=== PATIENT | female | born 1995 | race Hispanic/Latino ===

== ENCOUNTER 2017-07-26 12:00 | Inpatient (IN) | payer SELFPAY ==
[2017-07-26 12:05] VITALS: BMI 23.5
[2017-07-26] MEDS ORDERED: Sodium Chloride 0.9% 1,000 ML IV ONE (12:19)
--- NOTE | 2017-07-26 12:30 | C.PDOC ---
History Of Present Illness 21-year-old female presents to the emergency department with complaints of left upper quadrant abdominal and flank pain for the past 1 week. She states the pain is constant and minimally improves with Tylenol. Patient notes having intermittent fever and non-bloody/non-bilious vomiting for the past three days, and currently complains of nausea and pain. Patient denies dysuria/hematuria, vaginal bleeding/discharge or diarrhea. LMP was mid-June. Time Seen by Provider: 07/26/17 12:14 Chief Complaint (Nursing): Abdominal Pain History Per: Patient History/Exam Limitations: no limitations Onset/Duration Of Symptoms: Days Current Symptoms Are (Timing): Still Present Severity: Moderate Quality Of Discomfort: "Pain" Associated Symptoms: Nausea. denies: Vomiting, Diarrhea, Urinary Symptoms Past Medical History Reviewed: Historical Data, Nursing Documentation, Vital Signs Vital Signs: Last Vital Signs Temp 98.7 F 07/28/17 16:00 Pulse 65 07/28/17 16:00 Resp 20 07/28/17 16:00 BP 107/62 07/28/17 16:00 Pulse Ox 99 07/28/17 16:00 - Medical History PMH: No Chronic Diseases Surgical History: Tonsillectomy Family History: States: No Known Family Hx - Social History Hx Alcohol Use: No Hx Substance Use: No - Immunization History Hx Tetanus Toxoid Vaccination: No Hx Influenza Vaccination: No Hx Pneumococcal Vaccination: No Review Of Systems Except As Marked, All Systems Reviewed And Found Negative. Constitutional: Positive for: Fever Cardiovascular: Negative for: Chest Pain, Palpitations Respiratory: Negative for: Cough, Shortness of Breath Gastrointestinal: Positive for: Nausea, Vomiting, Abdominal Pain. Negative for : Diarrhea Genitourinary: Negative for: Dysuria, Hematuria, Vaginal Discharge, Vaginal Bleeding Musculoskeletal: Negative for: Back Pain Skin: Negative for: Rash Neurological: Negative for: Weakness, Numbness Physical Exam - Physical Exam Appears: Well, Non-toxic, In Acute Distress (in moderate pain, tearful) Skin: Warm, Dry, No Rash Head: Normacephalic Eye(s): bilateral: Normal Inspection Oral Mucosa: Moist Neck: Normal ROM Cardiovascular: Rhythm Regular, No Murmur Respiratory: Normal Breath Sounds, No Accessory Muscle Use, No Rales, No Rhonchi , No Wheezing Gastrointestinal/Abdominal: Bowel Sounds, Soft, Tenderness (LUQ and left periumbilical area TTP), No Guarding, No Rebound Back: CVA Tenderness (left) Extremity: Normal ROM Neurological/Psych: Oriented x3 ED Course And Treatment - Laboratory Results Result Diagrams: 07/28/17 07:54 07/28/17 07:54 O2 Sat by Pulse Oximetry: 100 (RA) Pulse Ox Interpretation: Normal Progress Note: Bloodwork, UA, UPreg ordered and reviewed. Patient given IV NS bolus, IV morphine, IV zofran. CT scan abd/pelvis ordered to r/o kidney stone. CT scan shows left sided mild hydronephrosis and perinephric stranding - no stone; consistent with acute pyelonephritis. Reevaluation Time: 16:00 Reassessment Condition: Improved (Patient appears improved but still having left sided abd/flank pain - IV toradol ordered.) - Physician Consult Information Physician Contacted: Nuzhat Chavez Outcome Of Conversation: Discussed patient with hospitalist, agrees with admission to her service for acute pyelonephritis. Disposition - Disposition Disposition: HOSPITALIZED Disposition Time: 16:10 Condition: STABLE - Clinical Impression Clinical Impression: Acute pyelonephritis, Leukocytosis, Nausea, Vomiting - Scribe Statement The provider has reviewed the documentation as recorded by the Scribe (Belen Church) All medical record entries made by the Scribe were at my direction and personally dictated by me. I have reviewed the chart and agree that the record accurately reflects my personal performance of the history, physical exam, medical decision making, and the department course for this patient. I have also personally directed, reviewed, and agree with the discharge instructions and disposition. Decision To Admit - Pt Status Changed To: Hospital Disposition Of: Inpatient - Admit Certification Admit to Inpatient:: After my assessment, the patient will require hospitalization for at least two midnights. This is because of the severity of symptoms shown, intensity of services needed, and/or the medical risk in this patient being treated as an outpatient. - InPatient: Physician Admission Certification:: see notes - . Bed Request Type: Regular Admitting Physician: Nuzhat Chavez Patient Diagnosis: Acute pyelonephritis, Nausea, Vomiting, Leukocytosis
[2017-07-26] MEDS ORDERED: Sodium Chloride 0.9% 1,000 ML ONE (12:32)
[2017-07-26 12:46] LABS: BASO # 0.1 K/uL (0.0-0.2); BASO % 0.3 % (0.0-2.0); EOS % 0.1 % (0.0-4.0); LYMPH # 2.9 K/uL (1.0-4.3); LYMPH % 13.7 % (20.0-40.0); MEAN CELL VOLUME 82.9 fL (81.0-99.0); MEAN CORPUSCULAR HEMOGLOBIN 28.3 pg (27.0-31.0); MEAN CORPUSCULAR HGB CONC 34.2 g/dL (33.0-37.0); MEAN PLATELET VOLUME 9.1 fL (7.2-11.7); MONO # 2.5 K/uL (0.0-0.8); MONO % 11.6 % (0.0-10.0); RED CELL DISTRIBUTION WIDTH 11.9 % (11.5-14.5); WHITE BLOOD COUNT 21.2 K/uL (4.8-10.8)
[2017-07-26 12:59] LABS: URINE BILIRUBIN NEGATIVE (NEGATIVE); URINE BLOOD 1+ (NEGATIVE); URINE COLOR Amber (YELLOW); URINE GLUCOSE (UA) 1+ mg/dL (Normal); URINE KETONE TRACE mg/dL (NEGATIVE); URINE LEUKOCYTE ESTERASE 1+ Leu/uL (Negative); URINE PROTEIN 2+ mg/dL (NEGATIVE)
[2017-07-26 13:00] LABS: ALKALINE PHOSPHATASE 79 U/L (38-126); ALT/SGPT 25 U/L (9-52); AST/SGOT 14 U/L (14-36); BILIRUBIN,TOTAL 1.1 mg/dL (0.2-1.3); BLOOD UREA NITROGEN 9 mg/dL (7-17); CALCIUM 7.9 mg/dl (8.6-10.4); CARBON DIOXIDE 20 mmol/L (22-30); CHLORIDE 97 mmol/L (98-107); GFR AFRICAN-AMERICAN > 60; GLUCOSE,RANDOM 91 mg/dL (65-105); POTASSIUM 3.4 mmol/L (3.6-5.2); SODIUM 133 mmol/L (132-148); TOTAL PROTEIN 8.3 g/dL (6.3-8.3)
[2017-07-26 13:01] LABS: ALB/GLOB RATIO 1.2 (1.0-2.1)
[2017-07-26 13:18] LABS: RBC URINE 6 /hpf (0-3)
[2017-07-26 13:19] LABS: URINE BACTERIA MOD (<OCC); WBC URINE 25 /hpf (0-5)
[2017-07-26] MEDS ORDERED: cefTRIAXone IV 1 gm in Dextros 50 ML IV STA (13:51)
[2017-07-26] MEDS ORDERED: cefTRIAXone IV 1 gm in Dextros 50 ML IVPB ONE (14:04)
--- NOTE | 2017-07-26 15:05 | CT ---
PROCEDURE: CT Abdomen and Pelvis without Oral or IV contrast. HISTORY: LUQ PAIN, L FLANK PAIN COMPARISON: None available. TECHNIQUE: Contiguous axial images of the abdomen and pelvis. No oral or IV contrast administered. Coronal and Sagittal reformats generated and reviewed. Radiation dose: Total exam DLP = 387.28 MGy-cm. This CT exam was performed using one or more of the following dose reduction techniques: Automated exposure control, adjustment of the mA and/or kV according to patient size, and/or use of iterative reconstruction technique. FINDINGS: There is limited evaluation of the solid organs without the administration of IV contrast. LOWER THORAX: No visible consolidation, pleural effusion, or pneumothorax. LIVER: Hepatomegaly. GALLBLADDER AND BILE DUCTS: Unremarkable unenhanced appearance. PANCREAS: Unremarkable unenhanced appearance. SPLEEN: Unremarkable unenhanced appearance. ADRENALS: Unremarkable unenhanced appearance. KIDNEYS AND URETERS: Mild left-sided hydronephrosis and fullness of the proximal left ureter without clear evidence of obstructing calculus. Mild perinephric stranding on the left. Correlate for infectious etiologies or recently passed calculus. Alternatives including stricture or neoplasm cannot be entirely excluded. Correlate clinically. Several pelvic calcifications on the left, likely phleboliths. No right-sided hydronephrosis or obstructing calculus identified. BLADDER: Under distention of the urinary bladder limits evaluation. REPRODUCTIVE: Uterus is present. APPENDIX: The appendix appears within normal limits of caliber. No secondary signs of acute appendicitis. BOWEL: The stomach is nondistended. Lack of oral contrast limits evaluation for bowel pathology. The bowel loops appear within normal limits of caliber without evidence of intestinal obstruction. PERITONEUM: Small pelvic free fluid. No definite free air. LYMPH NODES: No bulky lymphadenopathy identified. VASCULATURE: No aortic aneurysm. BONES: No acute osseous abnormality is detected. OTHER FINDINGS: None. IMPRESSION: Mild left-sided hydronephrosis and fullness of the proximal left ureter without clear evidence of obstructing calculus. Mild perinephric stranding on the left. Correlate for infectious etiologies or recently passed calculus. Alternatives including stricture or neoplasm cannot be entirely excluded. Correlate clinically including urinalysis. Several pelvic calcifications on the left, likely phleboliths. Hepatomegaly.
--- NOTE | 2017-07-26 17:03 | CP.PCM.HP ---
Addendum entered and electronically signed by Bebeto Fonseca DO 07/26/17 17: 31: lactate is 1.1. Original Note: <RaymundoBebeto H - Last Filed: 07/26/17 17:22> History of Present Illness - History of Present Illness History of Present Illness: CC: Left flank pain HPI: Patient is a 21 year old female with no significant medical history is here because of left flank pain for one week and then starting a having fever, chills, nausea, vomiting, and malaise that has not improved in 3 days. She says it started with non radiating flank pain which she took Tylenol or Motrin with no relief. She also started vomiting three days ago, vomiting a total of 3 times. She is currently sexually active using only oral control. Her last LMP was last month. She is visiting from [place] but currently lives with her male partner. She says the flank pain also started radiating to her abdomen and groin area as well the past few days. She denies any dysuria, hematuria, and urinary frequency. PMH: denies PSH: Tonsillectomy FH: Grandfather of lung cancer SH: Student from [place], social etoh use, denies smoking, or illicit drug use. Present on Admission - Present on Admission Any Indicators Present on Admission: No History of DVT/PE: No History of Uncontrolled Diabetes: No Urinary Catheter: No Decubitus Ulcer Present: No History Surgical Site Infection Following: None Review of Systems - Constitutional Constitutional: Chills, Fever, Malaise - EENT Eyes: absent: Blurred Vision, Change in Vision - Cardiovascular Cardiovascular: absent: Chest Pain, Dyspnea - Respiratory Respiratory: absent: Cough, Dyspnea - Gastrointestinal Gastrointestinal: Abdominal Pain, Nausea, Vomiting. absent: Constipation, Diarrhea - Genitourinary Genitourinary: Flank Pain. absent: Difficulty Urinating, Dysuria, Hematuria, Pyuria - Reproductive: Female Additional comments: oral control - Musculoskeletal Musculoskeletal: absent: Numbness, Tingling - Neurological Neurological: absent: Dizziness, Numbness, Focal Weakness, Weakness - Psychiatric Psychiatric: absent: Anxiety - Endocrine Endocrine: Excessive Sweating, Flushing. absent: Fatigue, Palpitations Past Patient History - Past Social History Smoking Status: Never Smoked - PSYCHIATRIC Hx Substance Use: No - SURGICAL HISTORY Hx Tonsillectomy: Yes - ANESTHESIA Hx Anesthesia: Yes Hx Anesthesia Reactions: No Meds Allergies/Adverse Reactions: Allergies Allergy/AdvReac Type Severity Reaction Status Date / Time No Known Allergies Allergy Verified 07/26/17 12:03 Physical Exam - Constitutional Appears: Non-toxic, No Acute Distress - Eye Exam Eye Exam: Normal appearance, PERRL. absent: Scleral icterus Pupil Exam: absent: NORMAL ACCOMODATION - ENT Exam ENT Exam: Mucous Membranes Moist. absent: Normal Exam - Respiratory Exam Respiratory Exam: Clear to Auscultation Bilateral. absent: Rales, Rhonchi, Wheezes - Cardiovascular Exam Cardiovascular Exam: REGULAR RHYTHM, RRR, +S1, +S2. absent: Gallop, Rubs - GI/Abdominal Exam GI & Abdominal Exam: Normal Bowel Sounds, Soft, Tenderness (mild diffuse). absent: Distended, Guarding, Rebound - Extremities Exam Extremities exam: Positive for: normal inspection. Negative for: calf tenderness, pedal edema - Back Exam Back exam: CVA tenderness (L) (very tender). absent: CVA tenderness (R), NORMAL INSPECTION - Neurological Exam Neurological exam: Alert, Oriented x3 - Psychiatric Exam Psychiatric exam: Normal Affect, Normal Mood - Skin Skin Exam: Cyanosis, Intact, Warm (skin hot to the touch) Results - Vital Signs Recent Vital Signs: Last Vital Signs Temp 99.2 F 07/26/17 16:07 Pulse 98 H 07/26/17 16:07 Resp 20 07/26/17 16:07 BP 129/79 07/26/17 16:07 Pulse Ox 94 L 07/26/17 16:07 - Labs Result Diagrams: 07/26/17 12:42 07/26/17 12:42 Labs: Laboratory Results - last 24 hr 07/26/17 07/26/17 07/26/17 12:42 12:42 12:42 WBC 21.2 H RBC 4.94 Hgb 14.0 Hct 41.0 MCV 82.9 MCH 28.3 MCHC 34.2 RDW 11.9 Plt Count 191 MPV 9.1 Neut % (Auto) 74.3 Lymph % (Auto) 13.7 L Todd % (Auto) 11.6 H Eos % (Auto) 0.1 Baso % (Auto) 0.3 Neut # 15.7 H Lymph # 2.9 Todd # 2.5 H Eos # 0.0 Baso # 0.1 Sodium 133 Potassium 3.4 L Chloride 97 L Carbon Dioxide 20 L Anion Gap 19 BUN 9 Creatinine 0.8 Est GFR ( Amer) > 60 Est GFR (Non-Af Amer) > 60 Random Glucose 91 Calcium 7.9 L Total Bilirubin 1.1 AST 14 ALT 25 Alkaline Phosphatase 79 Total Protein 8.3 Albumin 4.5 Globulin 3.8 Albumin/Globulin Ratio 1.2 Lipase 77 Urine Color Pamella Urine Clarity Turbid Urine pH 5.0 Ur Specific Whitehouse 1.020 Urine Protein 2+ H Urine Glucose (UA) 1+ Urine Ketones Trace Urine Blood 1+ H Urine Nitrate Positive H Urine Bilirubin Negative Urine Urobilinogen 2.0 H Ur Leukocyte Esterase 1+ H Urine WBC (Auto) 25 H Urine RBC (Auto) 6 H Ur Squamous Epith Cells 8 H Urine Bacteria Mod H Urine HCG, Qual Negative Assessment & Plan (1) Pyelonephritis Assessment and Plan: UA shows nitrates, WBCs, have started Rocephin 1 gram daily, will follow up urine cultures. Patient has a white count with left shift, left side CVA is very tender, also mild left sided hydrnephrosis which could be from a stone that passed, however it was not seen on CT scan. Will given Rocephin 1 gram daily, follow up urine cultures, given Tylenol for fever, Motrin for mild pain, and morphine 1 gram Q6H for severe pain. IV fluids normal saline at 100 cc/hr. will allow patient to have diet if she can tolerate it. She does fit sepsis criteria with WBC and she was initially tachycardic, will get lactic acid, that needs to be follow up. Urine preg is negative. Follow up urine and blood cultures. Case discussed and reviewed with Dr. Schaffer. Status: Acute (2) Hydronephrosis Assessment and Plan: could be from a stone, most likely from infection. Consider Urology consult if her symptoms do not improve in next 2-3 days. Status: Acute (3) Hypokalemia Assessment and Plan: K is 3.4, have 40 meq of KDUR. Status: Acute (4) Prophylactic measure Assessment and Plan: Pepcid 20mg bid Heparin 5000 units sc q12h, and SCDs Status: Acute <Nuzhat Chavez - Last Filed: 07/27/17 14:16> Results - Vital Signs Recent Vital Signs: Last Vital Signs Temp 99.2 F 07/26/17 16:07 Pulse 98 H 07/26/17 16:07 Resp 20 07/26/17 16:07 BP 129/79 07/26/17 16:07 Pulse Ox 94 L 07/26/17 16:07 - Labs Result Diagrams: 07/27/17 07:18 07/27/17 07:18 Labs: Laboratory Results - last 24 hr 07/26/17 07/26/17 07/26/17 12:42 12:42 12:42 WBC 21.2 H RBC 4.94 Hgb 14.0 Hct 41.0 MCV 82.9 MCH 28.3 MCHC 34.2 RDW 11.9 Plt Count 191 MPV 9.1 Neut % (Auto) 74.3 Lymph % (Auto) 13.7 L Todd % (Auto) 11.6 H Eos % (Auto) 0.1 Baso % (Auto) 0.3 Neut # 15.7 H Lymph # 2.9 Todd # 2.5 H Eos # 0.0 Baso # 0.1 Sodium 133 Potassium 3.4 L Chloride 97 L Carbon Dioxide 20 L Anion Gap 19 BUN 9 Creatinine 0.8 Est GFR ( Amer) > 60 Est GFR (Non-Af Amer) > 60 Random Glucose 91 Lactic Acid Calcium 7.9 L Total Bilirubin 1.1 AST 14 ALT 25 Alkaline Phosphatase 79 Total Protein 8.3 Albumin 4.5 Globulin 3.8 Albumin/Globulin Ratio 1.2 Lipase 77 Urine Color Pamella Urine Clarity Turbid Urine pH 5.0 Ur Specific [place] 1.020 Urine Protein 2+ H Urine Glucose (UA) 1+ Urine Ketones Trace Urine Blood 1+ H Urine Nitrate Positive H Urine Bilirubin Negative Urine Urobilinogen 2.0 H Ur Leukocyte Esterase 1+ H Urine WBC (Auto) 25 H Urine RBC (Auto) 6 H Ur Squamous Epith Cells 8 H Urine Bacteria Mod H Urine HCG, Qual Negative 07/26/17 17:07 WBC RBC Hgb Hct MCV MCH MCHC RDW Plt Count MPV Neut % (Auto) Lymph % (Auto) Todd % (Auto) Eos % (Auto) Baso % (Auto) Neut # Lymph # Todd # Eos # Baso # Sodium Potassium Chloride Carbon Dioxide Anion Gap BUN Creatinine Est GFR ( Amer) Est GFR (Non-Af Amer) Random Glucose Lactic Acid 1.1 Calcium Total Bilirubin AST ALT Alkaline Phosphatase Total Protein Albumin Globulin Albumin/Globulin Ratio Lipase Urine Color Urine Clarity Urine pH Ur Specific Whitehouse Urine Protein Urine Glucose (UA) Urine Ketones Urine Blood Urine Nitrate Urine Bilirubin Urine Urobilinogen Ur Leukocyte Esterase Urine WBC (Auto) Urine RBC (Auto) Ur Squamous Epith Cells Urine Bacteria Urine HCG, Qual Attending/Attestation - Attestation I have personally seen and examined this patient.: Yes I have fully participated in the care of the patient.: Yes I have reviewed all pertinent clinical information: Yes Notes (Text): Patient was seen and examined.d/w the resident I agree with the documentation Pyelonephritis,antibiotics,follow cultures
[2017-07-26] MEDS ORDERED: Potassium Chloride 20 mEq ER Tab PO STA (17:32)
[2017-07-26] MEDS: Sodium Chloride 0.9% 1,000 ML IV SCH (17:34)
[2017-07-26 23:08] LABS: INR 1.1
[2017-07-27 01:35] VITALS: RESP 20
[2017-07-27] MEDS: Sodium Chloride 0.9% 1,000 ML IV SCH ×3 (04:00→22:10)
[2017-07-27 07:33] LABS: MONO # 1.3 K/uL (0.0-0.8); RED CELL DISTRIBUTION WIDTH 11.8 % (11.5-14.5); WHITE BLOOD COUNT 11.8 K/uL (4.8-10.8)
[2017-07-27 07:51] LABS: BASO % 0.4 % (0.0-2.0); EOS % 0.3 % (0.0-4.0); HEMATOCRIT 33.3 % (34.0-47.0); LYMPH # 3.6 K/uL (1.0-4.3); LYMPH % 30.3 % (20.0-40.0); MEAN CELL VOLUME 83.8 fL (81.0-99.0); MEAN CORPUSCULAR HEMOGLOBIN 28.8 pg (27.0-31.0); MEAN CORPUSCULAR HGB CONC 34.4 g/dL (33.0-37.0); MEAN PLATELET VOLUME 9.6 fL (7.2-11.7); MONO % 11.3 % (0.0-10.0)
[2017-07-27 08:11] LABS: ALB/GLOB RATIO 1.3 (1.0-2.1); ALKALINE PHOSPHATASE 67 U/L (38-126); ALT/SGPT 27 U/L (9-52); AST/SGOT 15 U/L (14-36); BILIRUBIN,TOTAL 0.9 mg/dL (0.2-1.3); BLOOD UREA NITROGEN 9 mg/dL (7-17); CALCIUM 7.9 mg/dl (8.6-10.4); CARBON DIOXIDE 22 mmol/L (22-30); CHLORIDE 104 mmol/L (98-107); GFR AFRICAN-AMERICAN > 60; GLUCOSE,RANDOM 77 mg/dL (65-105); MAGNESIUM 1.8 mg/dL (1.6-2.3); POTASSIUM 3.8 mmol/L (3.6-5.2); SODIUM 134 mmol/L (132-148)
--- NOTE | 2017-07-27 14:17 | CP.PCM.PN ---
Subjective - Date & Time of Evaluation Date of Evaluation: 07/27/17 Time of Evaluation: 13:00 - Subjective Subjective: Feels better,no fever,less pain,No vomiting Objective - Vital Signs/Intake and Output Vital Signs (last 24 hours): Temp Pulse Resp BP Pulse Ox 98.1 F 71 20 122/73 99 07/27/17 07:34 07/27/17 07:34 07/27/17 07:34 07/27/17 07:34 07/27/17 07:34 Intake and Output: 07/27/17 07/27/17 06:59 18:59 Intake Total 600 Balance 600 - Medications Medications: Current Medications Acetaminophen (Tylenol 325mg Tab) 650 mg PO Q6 PRN PRN Reason: Fever >100.4 F Famotidine (Pepcid) 20 mg PO BID [facility] Last Admin: 07/27/17 09:09 Dose: 20 mg Heparin Sodium (Porcine) (Heparin) 5,000 units SC Q12 [facility] Last Admin: 07/27/17 09:09 Dose: 5,000 units Ceftriaxone Sodium (Rocephin Iv 1 Gm Duplex) 50 mls @ 100 mls/hr IVPB Q24H ROD Sodium Chloride (Sodium Chloride 0.9%) 1,000 mls @ 100 mls/hr IV .Q10H [facility] Last Admin: 07/27/17 04:00 Dose: Not Given Ibuprofen (Motrin Tab) 400 mg PO Q6 PRN PRN Reason: Pain, moderate (4-7) Morphine Sulfate (Morphine) 1 mg IVP Q6H PRN PRN Reason: Pain, severe (8-10) Last Admin: 07/27/17 07:55 Dose: 1 mg Ondansetron HCl (Zofran Inj) 4 mg IVP Q6 PRN PRN Reason: Nausea/Vomiting - Labs Labs: 07/27/17 07:18 07/27/17 07:18 PT 12.3 SECONDS (9.7-12.2) H 07/26/17 22:51 INR 1.1 07/26/17 22:51 APTT 28 SECONDS (21-34) 07/26/17 22:51 - Constitutional Appears: Non-toxic - Head Exam Head Exam: NORMAL INSPECTION - Eye Exam Eye Exam: Normal appearance - ENT Exam ENT Exam: Mucous Membranes Moist - Neck Exam Neck Exam: Normal Inspection - Respiratory Exam Respiratory Exam: Clear to Ausculation Bilateral, NORMAL BREATHING PATTERN - Cardiovascular Exam Cardiovascular Exam: REGULAR RHYTHM - GI/Abdominal Exam GI & Abdominal Exam: Soft, Normal Bowel Sounds - Extremities Exam Extremities Exam: Full ROM - Back Exam Back Exam: NORMAL INSPECTION - Neurological Exam Neurological Exam: Awake, Oriented x3 - Psychiatric Exam Psychiatric exam: Normal Mood - Skin Skin Exam: Dry Assessment and Plan - Assessment and Plan (Free Text) Plan: 1. Pyelonephritis and mild hydronephrosis IV fluids,Ceftriaxone,follow C/S US to check her hydronephrosis 2.Vomiting and pain Improving
[2017-07-27] MEDS: cefTRIAXone IV 1 gm in Dextros 50 ML IVPB SCH (14:25)
[2017-07-28 08:13] LABS: BASO % 0.3 % (0.0-2.0); EOS # 0.1 K/uL (0.0-0.7); EOS % 0.8 % (0.0-4.0); HEMATOCRIT 33.9 % (34.0-47.0); LYMPH # 3.1 K/uL (1.0-4.3); LYMPH % 31.9 % (20.0-40.0); MEAN CELL VOLUME 82.4 fL (81.0-99.0); MEAN CORPUSCULAR HEMOGLOBIN 28.9 pg (27.0-31.0); MEAN CORPUSCULAR HGB CONC 35.1 g/dL (33.0-37.0); MONO # 1.2 K/uL (0.0-0.8); MONO % 12.8 % (0.0-10.0); RED CELL DISTRIBUTION WIDTH 11.7 % (11.5-14.5); WHITE BLOOD COUNT 9.7 K/uL (4.8-10.8)
[2017-07-28 08:57] LABS: ALB/GLOB RATIO 1.2 (1.0-2.1); ALKALINE PHOSPHATASE 81 U/L (38-126); ALT/SGPT 25 U/L (9-52); AST/SGOT 19 U/L (14-36); BILIRUBIN,TOTAL 0.7 mg/dL (0.2-1.3); BLOOD UREA NITROGEN 6 mg/dL (7-17); CALCIUM 8.3 mg/dl (8.6-10.4); CARBON DIOXIDE 23 mmol/L (22-30); CHLORIDE 103 mmol/L (98-107); GFR AFRICAN-AMERICAN > 60; GLUCOSE,RANDOM 89 mg/dL (65-105); MAGNESIUM 1.7 mg/dL (1.6-2.3); PHOSPHOROUS 3.7 mg/dL (2.5-4.5); POTASSIUM 3.7 mmol/L (3.6-5.2); SODIUM 134 mmol/L (132-148); TOTAL PROTEIN 6.1 g/dL (6.3-8.3)
[2017-07-28] MEDS: Sodium Chloride 0.9% 1,000 ML IV SCH (13:00)
[2017-07-28] MEDS: cefTRIAXone IV 1 gm in Dextros 50 ML IVPB SCH (14:44)
--- NOTE | 2017-07-28 15:46 | US ---
HISTORY: Pyelonephritis. COMPARISON: None. TECHNIQUE: Sonographic evaluation of the abdomen. FINDINGS: LIVER: The liver measures approximately 17.4 cm in CC dimension. . Liver demonstrates smooth contour and normal echogenicity of the liver parenchyma. No mass. No intrahepatic bile duct dilatation. GALLBLADDER: Gallbladder is physiologically distended. No evidence of intraluminal gallbladder calculi. No pericholecystic fluid collections or sonographic Hope sign. COMMON BILE DUCT: Common bile duct measures approximately 3.4 mm mm. No stones. No dilatation. PANCREAS: Visualized portions of the pancreas appear grossly unremarkable. . No mass. No ductal dilatation. RIGHT KIDNEY: Measures right kidney measures approximately 11.8 x 4.9 x 5.4 hydronephrosis. LEFT KIDNEY: Left kidney measures approximately 10.7 x 5.7 x 5.5cm. Normal echogenicity. No calculus, mass, or hydronephrosis. SPLEEN: Spleen exhibits normal size measuring approximately 11.3 cm. Normal contour. No masses collections or calcifications. . No mass. AORTA: No aneurysmal dilatation. IVC: Unremarkable. OTHER FINDINGS: None. IMPRESSION: Unremarkable abdominal ultrasound. Sonogram.
--- NOTE | 2017-07-28 16:55 | CP.PCM.DIS ---
Provider - Provider Date of Admission: 07/26/17 16:10 Attending physician: Nuzhat Chavez MD Time Spent in preparation of Discharge (in minutes): 45 Diagnosis - Discharge Diagnosis (1) Pyelonephritis Status: Acute Hospital Course - Lab Results Lab Results: Micro Results 07/26/17 14:16 Blood Blood Culture - Preliminary NO GROWTH AFTER 48 HOURS 07/26/17 13:45 Blood Blood Culture - Preliminary NO GROWTH AFTER 48 HOURS 07/26/17 14:30 Urine Urine Culture - Final Escherichia Coli Most Recent Lab Values WBC 9.7 K/uL (4.8-10.8) 07/28/17 07:54 RBC 4.12 Mil/uL (3.80-5.20) 07/28/17 07:54 Hgb 11.9 g/dL (11.0-16.0) 07/28/17 07:54 Hct 33.9 % (34.0-47.0) L 07/28/17 07:54 MCV 82.4 fL (81.0-99.0) 07/28/17 07:54 MCH 28.9 pg (27.0-31.0) 07/28/17 07:54 MCHC 35.1 g/dL (33.0-37.0) 07/28/17 07:54 RDW 11.7 % (11.5-14.5) 07/28/17 07:54 Plt Count 180 K/uL (130-400) 07/28/17 07:54 MPV 9.0 fL (7.2-11.7) 07/28/17 07:54 Neut % (Auto) 54.2 % (50.0-75.0) 07/28/17 07:54 Lymph % (Auto) 31.9 % (20.0-40.0) 07/28/17 07:54 [place] % (Auto) 12.8 % (0.0-10.0) H 07/28/17 07:54 Eos % (Auto) 0.8 % (0.0-4.0) 07/28/17 07:54 Baso % (Auto) 0.3 % (0.0-2.0) 07/28/17 07:54 Neut # 5.3 K/uL (1.8-7.0) 07/28/17 07:54 Lymph # 3.1 K/uL (1.0-4.3) 07/28/17 07:54 [place] # 1.2 K/uL (0.0-0.8) H 07/28/17 07:54 Eos # 0.1 K/uL (0.0-0.7) 07/28/17 07:54 Baso # 0.0 K/uL (0.0-0.2) 07/28/17 07:54 PT 12.3 SECONDS (9.7-12.2) H 07/26/17 22:51 INR 1.1 07/26/17 22:51 APTT 28 SECONDS (21-34) 07/26/17 22:51 Sodium 134 mmol/L (132-148) 07/28/17 07:54 Potassium 3.7 mmol/L (3.6-5.2) 07/28/17 07:54 Chloride 103 mmol/L (98-107) 07/28/17 07:54 Carbon Dioxide 23 mmol/L (22-30) 07/28/17 07:54 Anion Gap 13 (10-20) 07/28/17 07:54 BUN 6 mg/dL (7-17) L 07/28/17 07:54 Creatinine 0.7 mg/dL (0.7-1.2) 07/28/17 07:54 Est GFR ( Amer) > 60 07/28/17 07:54 Est GFR (Non-Af Amer) > 60 07/28/17 07:54 Random Glucose 89 mg/dL (65-105) 07/28/17 07:54 Lactic Acid 1.1 mmol/L (0.7-2.1) 07/26/17 17:07 Calcium 8.3 mg/dl (8.6-10.4) L 07/28/17 07:54 Phosphorus 3.7 mg/dL (2.5-4.5) 07/28/17 07:54 Magnesium 1.7 mg/dL (1.6-2.3) 07/28/17 07:54 Total Bilirubin 0.7 mg/dL (0.2-1.3) 07/28/17 07:54 AST 19 U/L (14-36) 07/28/17 07:54 ALT 25 U/L (9-52) 07/28/17 07:54 Alkaline Phosphatase 81 U/L (38-126) 07/28/17 07:54 Total Protein 6.1 g/dL (6.3-8.3) L 07/28/17 07:54 Albumin 3.3 g/dL (3.5-5.0) L 07/28/17 07:54 Globulin 2.8 gm/dL (2.2-3.9) 07/28/17 07:54 Albumin/Globulin Ratio 1.2 (1.0-2.1) 07/28/17 07:54 Lipase 77 U/L (23-300) 07/26/17 12:42 Beta HCG, Quant < 2.39 mIU/ML 07/26/17 12:38 Urine Color [place] (YELLOW) 07/26/17 12:42 Urine Clarity Turbid (Clear) 07/26/17 12:42 Urine pH 5.0 (5.0-8.0) 07/26/17 12:42 Ur Specific [place] 1.020 (1.003-1.030) 07/26/17 12:42 Urine Protein 2+ mg/dL (NEGATIVE) H 07/26/17 12:42 Urine Glucose (UA) 1+ mg/dL (Normal) 07/26/17 12:42 Urine Ketones Trace mg/dL (NEGATIVE) 07/26/17 12:42 Urine Blood 1+ (NEGATIVE) H 07/26/17 12:42 Urine Nitrate Positive (NEGATIVE) H 07/26/17 12:42 Urine Bilirubin Negative (NEGATIVE) 07/26/17 12:42 Urine Urobilinogen 2.0 mg/dL (0.2-1.0) H 07/26/17 12:42 Ur Leukocyte Esterase 1+ Sarah/uL (Negative) H 07/26/17 12:42 Urine WBC (Auto) 25 /hpf (0-5) H 07/26/17 12:42 Urine RBC (Auto) 6 /hpf (0-3) H 07/26/17 12:42 Ur Squamous Epith Cells 8 /hpf (0-5) H 07/26/17 12:42 Urine Bacteria Mod (<OCC) H 07/26/17 12:42 Urine HCG, Qual Negative (NEGATIVE) 07/26/17 12:42 - Hospital Course Hospital Course: CC: Left flank pain HPI: Patient is a 21 year old female with no significant medical history is here because of left flank pain for one week and then starting a having fever, chills, nausea, vomiting, and malaise that has not improved in 3 days. She says it started with non radiating flank pain which she took Tylenol or Motrin with no relief. She also started vomiting three days ago, vomiting a total of 3 times. She is currently sexually active using only oral control. Her last LMP was last month. She is visiting from [place] but currently lives with her male partner. She says the flank pain also started radiating to her abdomen and groin area as well the past few days. She denies any dysuria, hematuria, and urinary frequency. PMH: denies PSH: Tonsillectomy FH: Grandfather of lung cancer SH: Student from [place], social etoh use, denies smoking, or illicit drug use. Hospital Course: Patient was admitted on 07/26/17 for pyelonephritis. In the ED , labs were drawn, UA was collected and Rocephin was given. Patient was found to have leukocytosis. Abdomen/pelvis CT showed mild left sided hydronephrosis and fullness of the proximal left ureter without obstruction; mild perinephric stranding on the left; correlate for infectious etiologies or recently passed calculus; several pelvic calcifications on the left, likely phleboliths; hepatomegaly. Patient was started on Rocephin and IV fluids. Patient pain was controlled with prn morphine and Tylenol. Urine and blood cultures were ordered. Patient was also found to be slightly hypokalemic and Kdur was administered. On 07/27/17, abdominal ultrasound was ordered to evaluate hydronephrosis. Patient reported feeling better on 07/27/17. Continued IV antibiotics. Abdominal ultrasound showed no hydronephrosis and was unremarkable. Urine culture showed E.coli. Patient was seen and examined today, 07/28/17, and reports feeling well. Patient denies having cva tenderness, abdominal pain, back pain, chest pain, nausea, vomiting, and fevers. Patient will start ciprofloxacin PO for 10 days (E.coli is sensitive to ciprofloxacin). Patient is stable for discharge to home. This is a summary of the hospital course. Please see EMR for more details. Discharge Exam - Head Exam Head Exam: ATRAUMATIC, NORMAL INSPECTION - Eye Exam Eye Exam: EOMI, Normal appearance, PERRL - ENT Exam ENT Exam: Mucous Membranes Moist - Respiratory Exam Respiratory Exam: Clear to PA & Lateral, NORMAL BREATHING PATTERN, UNREMARKABLE. absent: Rales, Rhonchi, Wheezes, Respiratory Distress - Cardiovascular Exam Cardiovascular Exam: REGULAR RHYTHM, +S1, +S2 - GI/Abdominal Exam GI & Abdominal Exam: Normal Bowel Sounds, Soft. absent: Distended, Firm, Guarding, Tenderness - Extremities Exam Extremities exam: normal inspection - Back Exam Back exam: NORMAL INSPECTION. absent: CVA tenderness (L), CVA tenderness (R), tenderness - Neurological Exam Neurological exam: Alert, Oriented x3 - Psychiatric Exam Psychiatric exam: Normal Affect, Normal Mood - Skin Skin Exam: Dry, Intact, Normal Color, Warm Discharge Plan - Discharge Medications Prescriptions: Ciprofloxacin 500 mg PO BID 10 Days #20 ml - Follow Up Plan Condition: GOOD Disposition: HOME/ ROUTINE Additional Instructions: Patient is stable for discharge to home. Patient must start new medication as prescribed listed below. Ciprofloxacin 500mg PO BID- take 1 tablet twice a day for 10 days. Patient should follow up with their PMD within one week of discharge. If symptoms reoccur or worsen, patient should return to the ED.
[2017-07-28 18:08] VITALS: BP 107/62; PULSE 65; TEMP 98.7
[2017-07-29 12:44] VITALS: O2SAT 100
== END 2017-07-28 18:15 | disposition home or self-care (01) | DRG 690 ==
LOC: C.ER 12:00 → C.9E 16:10 → C.6T 22:23
PROVIDERS: ADMIT Internal Medicine; ATTEND Internal Medicine
DX: N10 Acute pyelonephritis (principal); N13.30 Unspecified hydronephrosis; E87.6 Hypokalemia; R11.2 Nausea with vomiting, unspecified